=== PATIENT | male | born 1955 | race Two or more races ===

== ENCOUNTER 2019-08-06 17:50 | Inpatient (IN) | payer OTHER ==
[~2019-08-06] VITALS: Ht 165.1 cm; Wt 89.4 kg
[2019-08-06 19:52] LABS: BASOPHILS # (AUTO) 0.1 K/uL (0.0-8.0); BASOPHILS % (AUTO) 0.9 % (0.0-2.0); EOSINOPHILS # (AUTO) 0.1 K/uL (0.0-0.7); EOSINOPHILS % (AUTO) 1.6 % (0.0-7.0); HEMOGLOBIN 15.2 g/dL (12.5-16.3); LYMPHOCYTES % (AUTO) 15.1 % (20.5-51.5); MEAN CORPUSCULAR HEMOGLOBIN 34.3 uug (23.8-33.4); MEAN CORPUSCULAR HGB CONC 36 g/dL (32.5-36.3); MEAN CORPUSCULAR VOLUME 96.8 fL (73.0-96.2); MONOCYTES # (AUTO) 0.5 K/uL (2.0-10.0); NEUTROPHILS # (AUTO) 4.9 K/uL (1.8-8.9); NEUTROPHILS % (AUTO) 75.4 % (38.5-71.5); PLATELET COUNT (AUTO) 191 K/uL (152-348); RED BLOOD CELL COUNT(AUTO) 4.44 MIL/uL (4.06-5.63); WHITE BLOOD COUNT (AUTO) 6.5 K/uL (3.6-10.2)
[2019-08-06 20:03] LABS: CARBON DIOXIDE 30 mmol/L (21-32); CHLORIDE 101 mmol/L (98-107); GLUCOSE 121 mg/dL (74-106); POTASSIUM 3.6 mmol/L (3.5-5.1); UREA NITROGEN, BLOOD 17 mg/dL (7-18)
[2019-08-06 20:07] LABS: ALANINE AMINOTRANSFERASE 21 U/L (16-63); ALKALINE PHOSPHATASE 95 U/L (50-136); ASPARTATE AMINOTRANSFERASE 36 U/L (15-37); BILIRUBIN,DIRECT 0.4 mg/dL (0.0-0.2); BILIRUBIN,TOTAL 1.3 mg/dL (0.2-1.0); TOTAL PROTEIN, SERUM 8.7 g/dL (6.4-8.2)
[2019-08-06 20:08] LABS: ACETAMINOPHEN < 2.0 ug/mL (10-30)
[2019-08-06 20:16] LABS: ETHANOL < 3 MG/DL (0-0)
[2019-08-06 20:17] LABS: *BILIRUBIN,URIN 1+ (NEGATIVE); *BLOOD, URINE 2+ (NEGATIVE); *CLARITY,URINE SLIGHTLY CLOUDY (CLEAR); *COLOR,URINE AMBER (YELLOW); *KETONES,URINE NEGATIVE (NEGATIVE); LEUKOCYTE ESTERASE ,URINE 2+ (NEGATIVE); NITRITE, URINE NEGATIVE (NEGATIVE); UGLUCOSE TRACE (NEGATIVE)
[2019-08-06 20:28] LABS: THYROID STIMULATING HORMONE 2.201 mIU/mL (0.358-3.740)
[2019-08-06 20:29] LABS: *AMPHETAMINE, URINE NEGATIVE (NEGATIVE); *BARBITURATE, URINE NEGATIVE (NEGATIVE); *CANNABINOID, URINE NEGATIVE (NEGATIVE); *COCCAINE, URINE NEGATIVE (NEGATIVE); *OPIATE, URINE NEGATIVE (NEGATIVE); *PHENCYCLIDINE SCREEN,URINE NEGATIVE (NEGATIVE)
[2019-08-06 20:35] LABS: BACTERIA,URINE FEW /HPF (NONE SEEN); MUCUS,URINE FEW /LPF (0-FEW); SQUAMOUS EPITHELIAL CELL,UR FEW /HPF (NONE SEEN); WBC,URINE 80-100 /HPF (0-3)
[2019-08-06] MEDS ORDERED: MAG HYDROX/AL HYDROX/SIMETH 30 ML LIQUID UDC PO PRN (21:00)
[2019-08-06] MEDS ORDERED: MAGNESIUM HYDROXIDE 30 ML LIQUID UDC PO PRN (21:00)
[2019-08-06] MEDS ORDERED: BLOOD SUGAR DIAGNOSTIC 1 EACH STRIP VI ONE (21:00)
[2019-08-06] MEDS: LORAZEPAM 0.5 MG TABLET PO PRN (21:38)
[2019-08-06] MEDS: CEphaleXIN 500 MG CAPSULE PO SCH (21:46)
[2019-08-06 22:21] VITALS: BP 136/94
[2019-08-07] MEDS: TEMAZEPAM 7.5 MG CAPSULE PO PRN (01:11)
[2019-08-07 07:54] VITALS: BP 126/63
[2019-08-07] MEDS: CEphaleXIN 500 MG CAPSULE PO SCH ×2 (09:13→18:14)
[2019-08-07] MEDS: LORAZEPAM 0.5 MG TABLET PO PRN (11:59)
[2019-08-07] MEDS ORDERED: OLANZAPINE 10 MG VIAL IM ONE ×2 (12:00)
[2019-08-07] MEDS: OLANZAPINE ZYDIS 5 MG TAB.RAPDIS PO SCH ×2 (12:32→18:14)
[2019-08-07] MEDS ORDERED: DIVALPROEX SPRINKLE 125 MG CAP.SPRINK PO SCH (13:00)
[2019-08-07 17:04] VITALS: BP 169/78
[2019-08-07 20:27] VITALS: BP 139/85
[2019-08-08 07:30] VITALS: BP 135/78
[2019-08-08] MEDS: OLANZAPINE ZYDIS 5 MG TAB.RAPDIS PO SCH ×2 (08:29→16:19)
[2019-08-08] MEDS: CEphaleXIN 500 MG CAPSULE PO SCH ×2 (08:29→16:19)
[2019-08-08] MEDS: GABAPENTIN 100 MG CAPSULE PO SCH ×2 (12:45→16:19)
[2019-08-08] MEDS ORDERED: CEPH500C2 PO (13:57)
[2019-08-08] MEDS ORDERED: HYDR25TA4 PO (13:57)
[2019-08-08] MEDS ORDERED: LACT10SO58 PO (13:57)
[2019-08-08] MEDS ORDERED: METO50TA16 PO (13:57)
[2019-08-08] MEDS ORDERED: METO100T14 PO (13:57)
[2019-08-08] MEDS ORDERED: THIA100T74 PO (13:57)
[2019-08-08] MEDS ORDERED: FAMO-132 PO (13:57)
[2019-08-08] MEDS ORDERED: SPIR25TA6 PO (13:57)
[2019-08-08] MEDS ORDERED: folic acid PO (13:57)
[2019-08-08 15:42] VITALS: BP 134/68
[2019-08-08] MEDS: LORAZEPAM 0.5 MG TABLET PO PRN (16:19)
[2019-08-08] MEDS: LACTULOSE 20 G/30 ML LIQUID UDC PO SCH (17:25)
[2019-08-08] MEDS: HYDROCHLOROTHIAZIDE 25 MG TABLET PO SCH (17:26)
[2019-08-08 20:04] VITALS: BP 143/85
[2019-08-08] MEDS: METOPROLOL TARTRATE 50 MG TABLET PO SCH (21:09)
[2019-08-09 07:30] VITALS: BP 145/97
[2019-08-09] MEDS: LACTULOSE 20 G/30 ML LIQUID UDC PO SCH ×3 (09:00→18:16)
[2019-08-09] MEDS: GABAPENTIN 100 MG CAPSULE PO SCH ×3 (10:38→17:31)
[2019-08-09] MEDS: FOLIC ACID 1 MG TABLET PO SCH (10:38)
[2019-08-09] MEDS: FAMOTIDINE 20 MG TABLET PO SCH (10:39)
[2019-08-09] MEDS: OLANZAPINE ZYDIS 5 MG TAB.RAPDIS PO SCH ×2 (10:39→17:30)
[2019-08-09] MEDS: CEphaleXIN 500 MG CAPSULE PO SCH ×2 (10:39→17:29)
[2019-08-09] MEDS: METOPROLOL TARTRATE 50 MG TABLET PO SCH ×2 (10:41→20:11)
[2019-08-09] MEDS: THIAMINE HCL 100 MG TABLET PO SCH (10:42)
[2019-08-09] MEDS: HYDROCHLOROTHIAZIDE 25 MG TABLET PO SCH (11:50)
[2019-08-09 16:47] VITALS: BP 114/69
[2019-08-09 19:51] VITALS: BP 113/67
[2019-08-10] MEDS: TEMAZEPAM 7.5 MG CAPSULE PO PRN (01:40)
[2019-08-10 07:30] VITALS: BP 165/99
[2019-08-10] MEDS: CEphaleXIN 500 MG CAPSULE PO SCH ×2 (08:03→17:42)
[2019-08-10] MEDS: GABAPENTIN 100 MG CAPSULE PO SCH ×3 (08:04→17:42)
[2019-08-10] MEDS: HYDROCHLOROTHIAZIDE 25 MG TABLET PO SCH (08:04)
[2019-08-10] MEDS: FAMOTIDINE 20 MG TABLET PO SCH (08:04)
[2019-08-10] MEDS: FOLIC ACID 1 MG TABLET PO SCH (08:04)
[2019-08-10] MEDS: THIAMINE HCL 100 MG TABLET PO SCH (08:04)
[2019-08-10] MEDS: METOPROLOL TARTRATE 50 MG TABLET PO SCH ×2 (08:05→21:00)
[2019-08-10] MEDS: OLANZAPINE ZYDIS 5 MG TAB.RAPDIS PO SCH ×2 (08:05→17:43)
[2019-08-10 15:49] VITALS: BP 112/76
[2019-08-10] MEDS: LACTULOSE 20 G/30 ML LIQUID UDC PO SCH (17:42)
[2019-08-10 20:00] VITALS: BP 110/64
[2019-08-11] MEDS: ACETAMINOPHEN 325 MG TABLET PO PRN ×2 (03:28→12:31)
[2019-08-11] MEDS: LORAZEPAM 0.5 MG TABLET PO PRN (05:21)
[2019-08-11 07:59] VITALS: BP 115/70
[2019-08-11] MEDS: LACTULOSE 20 G/30 ML LIQUID UDC PO SCH ×2 (08:48→16:49)
[2019-08-11] MEDS: FOLIC ACID 1 MG TABLET PO SCH (08:49)
[2019-08-11] MEDS: HYDROCHLOROTHIAZIDE 25 MG TABLET PO SCH (08:49)
[2019-08-11] MEDS: CEphaleXIN 500 MG CAPSULE PO SCH ×2 (08:50→16:49)
[2019-08-11] MEDS: GABAPENTIN 100 MG CAPSULE PO SCH ×3 (08:50→16:49)
[2019-08-11] MEDS: METOPROLOL TARTRATE 50 MG TABLET PO SCH ×2 (08:50→21:43)
[2019-08-11] MEDS: THIAMINE HCL 100 MG TABLET PO SCH (08:50)
[2019-08-11] MEDS: FAMOTIDINE 20 MG TABLET PO SCH (08:50)
[2019-08-11] MEDS: OLANZAPINE ZYDIS 5 MG TAB.RAPDIS PO SCH ×2 (08:51→16:49)
[2019-08-11 15:38] VITALS: BP 109/77
[2019-08-11 20:00] VITALS: BP 118/62
[2019-08-11] MEDS: TEMAZEPAM 7.5 MG CAPSULE PO PRN (23:00)
[2019-08-12] MEDS: LORAZEPAM 0.5 MG TABLET PO PRN (04:13)
[2019-08-12 07:30] VITALS: BP 112/54
[2019-08-12] MEDS: FOLIC ACID 1 MG TABLET PO SCH (08:21)
[2019-08-12] MEDS: GABAPENTIN 100 MG CAPSULE PO SCH ×3 (08:21→18:07)
[2019-08-12] MEDS: FAMOTIDINE 20 MG TABLET PO SCH (08:21)
[2019-08-12] MEDS: CEphaleXIN 500 MG CAPSULE PO SCH ×2 (08:21→18:08)
[2019-08-12] MEDS: HYDROCHLOROTHIAZIDE 25 MG TABLET PO SCH (08:22)
[2019-08-12] MEDS: LACTULOSE 20 G/30 ML LIQUID UDC PO SCH ×2 (08:22→18:11)
[2019-08-12] MEDS: THIAMINE HCL 100 MG TABLET PO SCH (08:32)
[2019-08-12] MEDS: OLANZAPINE ZYDIS 5 MG TAB.RAPDIS PO SCH ×3 (08:36→20:05)
[2019-08-12] MEDS: METOPROLOL TARTRATE 50 MG TABLET PO SCH ×2 (10:56→21:00)
[2019-08-12 16:00] VITALS: BP 94/50
[2019-08-12 20:15] VITALS: BP 116/73
[2019-08-12] MEDS: TEMAZEPAM 7.5 MG CAPSULE PO PRN (22:21)
[2019-08-13 07:30] VITALS: BP 117/53
[2019-08-13] MEDS: THIAMINE HCL 100 MG TABLET PO SCH (08:10)
[2019-08-13] MEDS: FAMOTIDINE 20 MG TABLET PO SCH (08:11)
[2019-08-13] MEDS: GABAPENTIN 100 MG CAPSULE PO SCH ×3 (08:11→16:12)
[2019-08-13] MEDS: OLANZAPINE ZYDIS 5 MG TAB.RAPDIS PO SCH ×3 (08:11→20:05)
[2019-08-13] MEDS: FOLIC ACID 1 MG TABLET PO SCH (08:12)
[2019-08-13] MEDS: METOPROLOL TARTRATE 50 MG TABLET PO SCH ×2 (08:13→20:06)
[2019-08-13] MEDS: LACTULOSE 20 G/30 ML LIQUID UDC PO SCH ×2 (08:14→16:13)
[2019-08-13] MEDS: HYDROCHLOROTHIAZIDE 25 MG TABLET PO SCH (08:14)
[2019-08-13 15:34] VITALS: BP 96/59
[2019-08-13] MEDS ORDERED: INFLUENZA VACCINE 2019-2020 0.5 ML DISP.SYRIN IM ONE (20:00)
[2019-08-13] MEDS ORDERED: PNEUMOCOCCAL 23-VAL P-SAC VAC 0.5 ML VIAL IM ONE (20:00)
[2019-08-13 20:19] VITALS: BP 124/74
[2019-08-13] MEDS: TEMAZEPAM 7.5 MG CAPSULE PO PRN (22:05)
[2019-08-14 07:47] VITALS: BP 119/69
[2019-08-14] MEDS: FOLIC ACID 1 MG TABLET PO SCH (08:30)
[2019-08-14] MEDS: METOPROLOL TARTRATE 50 MG TABLET PO SCH ×2 (08:30→20:09)
[2019-08-14] MEDS: OLANZAPINE ZYDIS 5 MG TAB.RAPDIS PO SCH ×3 (08:30→20:08)
[2019-08-14] MEDS: GABAPENTIN 100 MG CAPSULE PO SCH ×3 (08:30→16:30)
[2019-08-14] MEDS: FAMOTIDINE 20 MG TABLET PO SCH (08:30)
[2019-08-14] MEDS: THIAMINE HCL 100 MG TABLET PO SCH (08:30)
[2019-08-14] MEDS: LACTULOSE 20 G/30 ML LIQUID UDC PO SCH ×2 (08:32→16:30)
[2019-08-14] MEDS: HYDROCHLOROTHIAZIDE 25 MG TABLET PO SCH (08:33)
[2019-08-14] MEDS ORDERED: PNEUMOCOCCAL 23-VAL P-SAC VAC 0.5 ML VIAL IM ONE (10:00)
[2019-08-14] MEDS ORDERED: LEVO750T21 PO (12:27)
[2019-08-14 16:42] VITALS: BP 120/66
[2019-08-14 19:59] VITALS: BP 123/66
[2019-08-14] MEDS: TEMAZEPAM 7.5 MG CAPSULE PO PRN (22:02)
[2019-08-15 07:30] VITALS: BP 117/74
[2019-08-15] MEDS: THIAMINE HCL 100 MG TABLET PO SCH (08:44)
[2019-08-15] MEDS: FOLIC ACID 1 MG TABLET PO SCH (08:44)
[2019-08-15] MEDS: FAMOTIDINE 20 MG TABLET PO SCH (08:45)
[2019-08-15] MEDS: HYDROCHLOROTHIAZIDE 25 MG TABLET PO SCH (08:45)
[2019-08-15] MEDS: GABAPENTIN 100 MG CAPSULE PO SCH ×2 (08:45→12:44)
[2019-08-15 08:46] VITALS: BP 117/74
[2019-08-15] MEDS: METOPROLOL TARTRATE 50 MG TABLET PO SCH (08:46)
[2019-08-15] MEDS ORDERED: OLANZAPINE ZYDIS 5 MG TAB.RAPDIS PO SCH (09:00)
[2019-08-15] MEDS: LACTULOSE 20 G/30 ML LIQUID UDC PO SCH (09:56)
== END 2019-08-15 14:00 | DRG 885 ==
LOC: ER 17:54 → GPS 20:42
PROVIDERS: ADMIT Psychiatry & Neurology Psychosomatic Medicine; ATTEND Nurse Practitioner Acute Care
DX: F25.0 Schizoaffective disorder, bipolar type (principal); N39.0 Urinary tract infection, site not specified; E87.2 Acidosis; F02.81 Dementia in other diseases classified elsewhere, unspecified severity, with behavioral disturbance; Z65.3 Problems related to other legal circumstances; K70.30 Alcoholic cirrhosis of liver without ascites; F10.10 Alcohol abuse, uncomplicated; Y90.0 Blood alcohol level of less than 20 mg/100 ml; E66.9 Obesity, unspecified; Z68.31 Body mass index [BMI] 31.0-31.9, adult; G31.09 Other frontotemporal neurocognitive disorder; R45.850 Homicidal ideations; E80.6 Other disorders of bilirubin metabolism
CPT/HCPCS: 36415; 70030-TC; 70450; 71045; 80307; 83605; 84443; 85025; 85730; 87040; 87086; 90686; 90732; 93005; A4663; G0480; G0480-TC